=== PATIENT | female | born 1985 | race Caucasian/White ===

== ENCOUNTER 2019-11-05 17:09 | Emergency (ER) | payer BC ==
[~2019-11-05] VITALS: Ht 160 cm; Wt 69.9 kg
[2019-11-05 17:19] VITALS: BP 124/77
== END 2019-11-05 19:04 | disposition left against medical advice (07) ==
LOC: ER 17:09
DX: O26.893 Other specified pregnancy related conditions, third trimester (principal); H92.02 Otalgia, left ear; Z3A.35 35 weeks gestation of pregnancy; Z53.21 Procedure and treatment not carried out due to patient leaving prior to being seen by health care provider

== ENCOUNTER 2023-06-16 00:29 | Inpatient (IN) | payer BC ==
[~2023-06-16] VITALS: Ht 153 cm; Wt 62.0 kg
[2023-06-16] MEDS ORDERED: ONDANSETRON HCL 4 MG/2 ML VIAL IV ONE ×2 (01:00→02:15)
[2023-06-16] MEDS ORDERED: MORPHINE SULFATE 4 MG/ML SYR/VIAL IV ONE (01:00)
[2023-06-16] MEDS ORDERED: KETOROLAC TROMETH 30 MG/ML 1ML VIAL IV ONE (01:00)
[2023-06-16] MEDS ORDERED: LACTATED RINGER'S 1,000 ML IV ONE ×2 (01:00→02:15)
[2023-06-16 01:18] VITALS: PULSE 98; RESP 15; O2SAT 95
[2023-06-16 01:25] LABS: Basophils # (auto) 0 10 ^3/uL (0-0.2); Basophils % (auto) 0.1 % (0.0-2.0); Eosinophils # (auto) 0.1 10 ^3/uL (0-0.8); Eosinophils % (auto) 0.8 % (0.0-7.0); Hematocrit 38.8 % (36.0-46.0); Hemoglobin 13.1 g/dL (12.2-16.2); Lymphocytes # (auto) 0.8 10 ^3/uL (0.4-5.4); Mean Corpuscular Hemoglobin 30.4 pg (28.0-32.0); Mean Corpuscular Hgb Conc. 33.8 g/dL (32.0-36.0); Mean Corpuscular Volume 90.1 fL (80.0-100.0); Monocytes # (auto) 0.5 10 ^3/uL (0-1.3); Monocytes % (auto) 5.2 % (0.0-12.0); Neutrophils # (auto) 8.8 10 ^3/uL (1.6-8.6); Neutrophils % (auto) 85.9 % (37.0-80.0); Red Blood Cells 4.31 10^6/uL (4.0-5.20); White Blood Cell 10.2 10^3/uL (4.4-10.8)
[2023-06-16 01:31] LABS: INR 1.04 (0.9-1.15); Partial Thromboplastin Time 31.2 SEC (24.5-34.5); Prothrombin Time 10.9 sec (9.3-11.8)
[2023-06-16 01:38] LABS: Albumin 3.6 g/dL (3.4-5.0); Calcium 8.3 mg/dL (8.7-10.4); Magnesium 2.5 mg/dL (1.6-2.6); Potassium 3.9 mmol/L (3.5-5.1)
[2023-06-16 01:41] LABS: Bilirubin, Total 0.7 mg/dL (0.2-1.0); Total Protein 7.1 g/dL (6.4-8.2)
[2023-06-16 01:43] LABS: Urine Bacteria NONE SEEN /hpf (None Seen); Urine Blood Negative /uL (Negative); Urine Clarity Clear (Clear); Urine Color Yellow (Yellow); Urine Protein, UAD TRACE (Negative); Urine Specific Gravity 1.012 (1.001-1.035); Urine Urobilinogen Normal (Negative); Urine WBC 48 /hpf (0 - 5)
[2023-06-16 01:47] LABS: Beta HCG, Quantitative < 1 mlU/mL (1-3)
[2023-06-16 02:10] LABS: CRP High Sensitivity 6.74 mg/dL (< 0.3)
[2023-06-16] MEDS ORDERED: HYDROmorphone HCL 2 MG/ML VL/or syr IV ONE (02:15)
[2023-06-16] MEDS ORDERED: cefTRIAXone 1GM/50ML D5W 50 ML IV ONE (02:15)
[2023-06-16 02:22] LABS: Erythrocyte Sedimentation Rate 25 mm/hr (0-20)
[2023-06-16] MEDS ORDERED: ACETAMINOPHEN 325 MG TAB PO PRN (06:45)
[2023-06-16] MEDS ORDERED: ONDANSETRON HCL 4 MG/2 ML VIAL IV PRN (06:45)
[2023-06-16] MEDS ORDERED: MORPHINE SULFATE INJ 2 MG/ml SYRG IV PRN (06:45)
[2023-06-16 08:00] VITALS: O2SAT 99
[2023-06-16] MEDS ORDERED: MANNITOL FTV 25% 12.5 GM/50 ML 50 ML IV ONE ×2 (08:15→16:00)
[2023-06-16] MEDS: LACTATED RINGER'S 1,000 ML IV SCH ×2 (08:25→13:31)
[2023-06-16] MEDS: cefTRIAXone 1GM/50ML D5W 50 ML IV SCH (08:31)
[2023-06-16 08:49] LABS: Basophils # (auto) 0 10 ^3/uL (0-0.2); Basophils % (auto) 0.5 % (0.0-2.0); Eosinophils # (auto) 0.1 10 ^3/uL (0-0.8); Eosinophils % (auto) 1.3 % (0.0-7.0); Lymphocytes # (auto) 1.7 10 ^3/uL (0.4-5.4); Lymphocytes % (auto) 16.9 % (10.0-50.0); Mean Corpuscular Hemoglobin 29.6 pg (28.0-32.0); Mean Corpuscular Hgb Conc. 32.5 g/dL (32.0-36.0); Mean Corpuscular Volume 91.1 fL (80.0-100.0); Monocytes # (auto) 0.8 10 ^3/uL (0-1.3); Monocytes % (auto) 7.4 % (0.0-12.0); Neutrophils # (auto) 7.5 10 ^3/uL (1.6-8.6); Neutrophils % (auto) 73.9 % (37.0-80.0); Red Blood Cells 4.06 10^6/uL (4.0-5.20); White Blood Cell 10.2 10^3/uL (4.4-10.8)
[2023-06-16 09:05] LABS: INR 1.03 (0.9-1.15); Partial Thromboplastin Time 32.9 SEC (24.5-34.5); Prothrombin Time 10.8 sec (9.3-11.8)
[2023-06-16 09:14] LABS: Potassium 3.4 mmol/L (3.5-5.1)
[2023-06-16 09:23] LABS: Urine Bacteria None Seen /hpf (None Seen)
[2023-06-16 09:35] LABS: Albumin 3.2 g/dL (3.4-5.0); BUN/Creatinine Ratio 8.2 (10.0-20.0); Bilirubin, Total 0.6 mg/dL (0.2-1.0); CRP High Sensitivity 6.85 mg/dL (< 0.3); Calcium 8.3 mg/dL (8.7-10.4); Total Protein 6.8 g/dL (6.4-8.2); Uric Acid 3.4 mg/dL (2.6-6.0)
[2023-06-16 11:32] LABS: Alcohol, Urine < 3.0 mg/dL (0-10); Amphetamine Screen, Urine NEGATIVE (NEGATIVE); Barbiturate Scree,Urine NEGATIVE (NEGATIVE); Benzodiazephine Screen, Urine NEGATIVE (NEGATIVE); Cannabinoid Screen, Urine NEGATIVE (NEGATIVE); Cocaine Screen, Urine NEGATIVE (NEGATIVE); Opiate Scree,Urine NEGATIVE (NEGATIVE); Phencyclidine Screen, Urine NEGATIVE (NEGATIVE)
[2023-06-16] MEDS: PANTOPRAZOLE 40 MG TAB PO SCH (11:42)
[2023-06-16 12:00] VITALS: BP 122/75; PULSE 68; RESP 20; TEMP 98.8; O2SAT 100
[2023-06-16 16:00] VITALS: BP 126/75; PULSE 88; RESP 20; TEMP 98.3; O2SAT 98
[2023-06-16 16:38] LABS: Erythrocyte Sedimentation Rate 23 mm/hr (0-20)
[2023-06-16] MEDS ORDERED: CYANOCOBALAMIN (B-12) 1000 MCG/1 ML VIAL SUBCUT ONE (16:45)
[2023-06-16] MEDS ORDERED: POTASSIUM CHL 10 Meq TABLET PO ONE (16:45)
[2023-06-16] MEDS ORDERED: CYANOCOBALAMIN (B-12) 1000 MCG/1 ML VIAL IM ONE (17:00)
[2023-06-16 17:27] LABS: Urine WBC 11 /hpf (0 - 5)
[2023-06-16] MEDS: MORPHINE SULFATE INJ 2 MG/ml SYRG IV PRN (20:19)
[2023-06-16 22:35] VITALS: BP 107/60; PULSE 84; RESP 16; TEMP 99.2; O2SAT 99
[2023-06-16] MEDS: HYDROcodone-ACET 5/325MG TAB PO PRN (23:59)
[2023-06-17] VITALS (7 sets, daily range): BP systolic 93–107; BP diastolic 58–72; PULSE 69–92; RESP 14–16; TEMP 97.6–98.6; O2SAT 92–98
[2023-06-17 06:07] LABS: RPR Non Reactive (Non Reactive)
[2023-06-17 06:13] LABS: Basophils # (auto) 0 10 ^3/uL (0-0.2); Basophils % (auto) 0.4 % (0.0-2.0); Eosinophils # (auto) 0.3 10 ^3/uL (0-0.8); Eosinophils % (auto) 3.5 % (0.0-7.0); Hematocrit 38.6 % (36.0-46.0); Hemoglobin 12.9 g/dL (12.2-16.2); Lymphocytes # (auto) 1.7 10 ^3/uL (0.4-5.4); Lymphocytes % (auto) 20.9 % (10.0-50.0); Mean Corpuscular Hemoglobin 30.1 pg (28.0-32.0); Mean Corpuscular Hgb Conc. 33.3 g/dL (32.0-36.0); Mean Corpuscular Volume 90.3 fL (80.0-100.0); Monocytes # (auto) 0.9 10 ^3/uL (0-1.3); Monocytes % (auto) 10.7 % (0.0-12.0); Neutrophils # (auto) 5.1 10 ^3/uL (1.6-8.6); Neutrophils % (auto) 64.5 % (37.0-80.0); Nucleated Red Blood Cells % 0.1 %; Red Blood Cells 4.27 10^6/uL (4.0-5.20); Red Cell Distribution Width 15.4 % (11.8-14.3)
[2023-06-17 06:39] LABS: Alanine Aminotransferase 11 U/L (7-40); Albumin 3.9 g/dL (3.2-4.8); Alkaline Phosphatase 45 U/L (46-116); Anion Gap 7.9 (5-15); Aspartate Aminotransferase 14 U/L (13-40); Calcium 8.7 mg/dL (8.7-10.4); Carbon Dioxide 25.1 mmol/L (20-30); Chloride 107 mmol/L (98-107); Glucose 90 mg/dL (74-106); Potassium 4.1 mmol/L (3.5-5.1); Sodium 140 mmol/L (136-145)
[2023-06-17 06:40] LABS: Bilirubin, Total 0.6 mg/dL (0.2-1.0); Total Protein 6.7 g/dL (5.7-8.2)
[2023-06-17 07:24] LABS: BUN/Creatinine Ratio 6.5 (10.0-20.0); Blood Urea Nitrogen < 5 mg/dL (9-23)
[2023-06-17] MEDS: MORPHINE SULFATE INJ 2 MG/ml SYRG IV PRN (08:12)
[2023-06-17] MEDS: cefTRIAXone 1GM/50ML D5W 50 ML IV SCH (08:15)
[2023-06-17] MEDS: PANTOPRAZOLE 40 MG TAB PO SCH (09:48)
[2023-06-17] MEDS: CYANOCOBALAMIN 500 MCG TAB PO SCH (09:48)
[2023-06-17] MEDS ORDERED: CYANOCOBALAMIN 500 MCG TAB PO SCH (10:00)
[2023-06-17] MEDS: LACTATED RINGER'S 1,000 ML IV SCH (10:40)
[2023-06-17] MEDS: MEROPENEM 1GM IVPB 100 ML IV SCH ×2 (12:13→18:20)
[2023-06-17] MEDS: HYDROcodone-ACET 5/325MG TAB PO PRN ×2 (12:13→19:48)
[2023-06-17] MEDS: DOCUSATE SOD 100 MG CAP PO SCH ×2 (16:52→21:11)
[2023-06-17] MEDS ORDERED: TEMAZEPAM 15 MG CAP PO ONE (22:00)
[2023-06-18] MEDS: MEROPENEM 1GM IVPB 100 ML IV SCH ×3 (03:00→18:37)
[2023-06-18 05:08] LABS: Chlamydia Trachomatis, NAA Negative (Negative); Neisseria gonorrhoeae, NAA Negative (Negative)
[2023-06-18 08:00] VITALS: BP 101/66; PULSE 77; RESP 18; TEMP 97.7; O2SAT 97
[2023-06-18] MEDS: PANTOPRAZOLE 40 MG TAB PO SCH (09:14)
[2023-06-18] MEDS: DOCUSATE SOD 100 MG CAP PO SCH ×2 (09:14→21:50)
[2023-06-18] MEDS: CYANOCOBALAMIN 500 MCG TAB PO SCH (09:15)
[2023-06-18 09:21] VITALS: BP 101/66; PULSE 77; RESP 18; TEMP 97.7; O2SAT 97
[2023-06-18] MEDS ORDERED: MANNITOL FTV 25% 12.5 GM/50 ML 50 ML IV ONE (11:00)
[2023-06-18] MEDS: HYDROcodone-ACET 5/325MG TAB PO PRN ×2 (11:33→18:38)
[2023-06-18 13:00] VITALS: BP 119/80; PULSE 91; RESP 19; TEMP 97.7; O2SAT 95
[2023-06-18] MEDS: LACTATED RINGER'S 1,000 ML IV SCH ×2 (15:25)
[2023-06-18 16:53] VITALS: BP 107/68; PULSE 65; RESP 17; TEMP 97.4; O2SAT 96
[2023-06-18 19:50] VITALS: PULSE 78; RESP 18; O2SAT 97
[2023-06-18 22:00] VITALS: BP 104/71; PULSE 78; RESP 18; TEMP 97.9; O2SAT 97
[2023-06-18] MEDS ORDERED: TEMAZEPAM 15 MG CAP PO ONE (22:00)
[2023-06-19] MEDS: LACTATED RINGER'S 1,000 ML IV SCH (02:40)
[2023-06-19] MEDS: MEROPENEM 1GM IVPB 100 ML IV SCH (03:24)
[2023-06-19 05:00] VITALS: BP 109/69; PULSE 66; RESP 18; TEMP 97.7; O2SAT 91
[2023-06-19 05:58] LABS: Anion Gap 5.1 (5-15); Carbon Dioxide 27.9 mmol/L (20-30); Chloride 106 mmol/L (98-107); Potassium 3.9 mmol/L (3.5-5.1); Sodium 139 mmol/L (136-145)
[2023-06-19 05:59] LABS: Calcium 8.9 mg/dL (8.7-10.4)
[2023-06-19 06:04] LABS: BUN/Creatinine Ratio 11.3 (10.0-20.0); Blood Urea Nitrogen 8 mg/dL (9-23); Glucose 93 mg/dL (74-106)
[2023-06-19 06:11] LABS: Basophils # (auto) 0 10 ^3/uL (0-0.2); Basophils % (auto) 0.7 % (0.0-2.0); Eosinophils # (auto) 0.3 10 ^3/uL (0-0.8); Eosinophils % (auto) 3.6 % (0.0-7.0); Hematocrit 35.3 % (36.0-46.0); Hemoglobin 11.8 g/dL (12.2-16.2); Lymphocytes # (auto) 1.7 10 ^3/uL (0.4-5.4); Lymphocytes % (auto) 24.7 % (10.0-50.0); Mean Corpuscular Hemoglobin 30.2 pg (28.0-32.0); Mean Corpuscular Hgb Conc. 33.5 g/dL (32.0-36.0); Mean Corpuscular Volume 90.1 fL (80.0-100.0); Monocytes # (auto) 0.7 10 ^3/uL (0-1.3); Monocytes % (auto) 10.6 % (0.0-12.0); Neutrophils # (auto) 4.2 10 ^3/uL (1.6-8.6); Neutrophils % (auto) 60.4 % (37.0-80.0); Red Blood Cells 3.92 10^6/uL (4.0-5.20); Red Cell Distribution Width 14.7 % (11.8-14.3)
[2023-06-19 08:05] VITALS: BP 101/66; PULSE 64; RESP 15; TEMP 98.1
[2023-06-19 08:24] VITALS: BP 101/66; PULSE 64; RESP 15; TEMP 98.1; O2SAT 100
[2023-06-19] MEDS ORDERED: CIPR500T4 PO (08:30)
[2023-06-19] MEDS ORDERED: TRAM50TA2 PO (08:30)
[2023-06-19 08:52] VITALS: BP 101/66; PULSE 64; RESP 15; TEMP 98.1; O2SAT 100
== END 2023-06-19 09:30 | disposition home or self-care (01) | DRG 690 ==
LOC: ER 00:29 → OVERFLOW 06:48 → CENTRAL 12:06
PROVIDERS: ADMIT Internal Medicine; ATTEND Nurse Practitioner Acute Care
DX: N10 Acute pyelonephritis (principal); R78.81 Bacteremia; N12 Tubulo-interstitial nephritis, not specified as acute or chronic; E87.8 Other disorders of electrolyte and fluid balance, not elsewhere classified; R79.82 Elevated C-reactive protein (CRP); N20.0 Calculus of kidney; R61 Generalized hyperhidrosis; E86.0 Dehydration; Z87.442 Personal history of urinary calculi; B96.20 Unspecified Escherichia coli [E. coli] as the cause of diseases classified elsewhere
CPT/HCPCS: 36415; 71045; 74176; 76775; 80048; 80053; 80061; 80307; 81001; 81015; 82043; 82306; 82360; 82607; 83605; 83690; 83735; 83880; 83930; 83935; 83970; 84100; 84443; 84484; 84550; 84702; 85025; 85610; 85652; 85730; 86141; 86592; 87040; 87077; 87086; 87186; 96361; 96365; 96375; G0378; J0696; J1885; J2185; J2405

== ENCOUNTER 2025-09-07 15:47 | Outpatient (CLI) | payer BC ==
[~2025-09-07 15:47] MED LIST: CIPR500T4 PO; TRAM50TA2 PO
[2025-09-07 16:17] LABS: Hematocrit 31.8 % (36.0-46.0); Hemoglobin 9.8 g/dL (12.2-16.2); Mean Corpuscular Hemoglobin 22.0 pg (28.0-32.0); Mean Corpuscular Volume 71.6 fL (80.0-100.0); Nucleated Red Blood Cells % 0.1 %
[2025-09-07 16:35] LABS: Alanine Aminotransferase 25 U/L (7-40); Albumin 4.5 g/dL (3.2-4.8); Alkaline Phosphatase 47 U/L (46-116); Anion Gap 8 (5-15); BUN/Creatinine Ratio 10.3 (10.0-20.0); Calcium 9.1 mg/dL (8.7-10.4); Carbon Dioxide 25 mmol/L (20-31); Chloride 107 mmol/L (98-107); Glucose 91 mg/dL (74-106); Magnesium 2.3 mg/dL (1.6-2.6); Potassium 4.5 mmol/L (3.5-5.1); Sodium 140 mmol/L (136-145); Total Protein 7.6 g/dL (5.7-8.2)
[2025-09-07 16:36] LABS: Bilirubin, Total 0.5 mg/dL (0.2-1.0)
[2025-09-07 16:37] LABS: Blood Urea Nitrogen 9 mg/dL (9-23)
[2025-09-07 20:00] LABS: Iron 15.0 ug/dL (50-170); Total Iron Binding Capacity 462.0 ug/dL (250-425)
== END 2025-09-07 17:00 | disposition home or self-care (01) ==
LOC: LAB 15:47
PROVIDERS: ATTEND Internal Medicine
DX: R00.2 Palpitations (principal)
CPT/HCPCS: 36415; 80053; 82378; 83540; 83550; 83735; 84439; 84443; 85025

== ENCOUNTER 2025-09-14 11:31 | Outpatient (CLI) | payer BC | END 2025-09-14 17:00 | disposition home or self-care (01) | LOC: LAB 11:31 | PROVIDERS: ATTEND Internal Medicine | DX: D50.9 Iron deficiency anemia, unspecified (principal); R14.0 Abdominal distension (gaseous) | CPT/HCPCS: 82274 ==

== ENCOUNTER 2025-10-11 10:42 | Day surgery (SDC) | payer BC ==
[2025-10-09 10:11] LABS: Hematocrit 32.5 % (36.0-46.0); Hemoglobin 10.0 g/dL (12.2-16.2); Mean Corpuscular Hemoglobin 22.0 pg (28.0-32.0); Mean Corpuscular Volume 71.4 fL (80.0-100.0); Nucleated Red Blood Cells % 0.0 %
[2025-10-09 10:21] LABS: Urine Protein, UAD Negative (Negative)
[2025-10-09 10:23] LABS: INR 0.98 (0.9-1.15); Partial Thromboplastin Time 26.1 SEC (24.5-34.5); Prothrombin Time 10.4 sec (9.3-11.8)
[2025-10-09 10:50] LABS: Alanine Aminotransferase 21 U/L (7-40); Albumin 4.4 g/dL (3.2-4.8); Alkaline Phosphatase 54 U/L (46-116); Anion Gap 9 (5-15); BUN/Creatinine Ratio 13.4 (10.0-20.0); Bilirubin, Total 0.4 mg/dL (0.2-1.0); Blood Urea Nitrogen 11 mg/dL (9-23); Calcium 9.1 mg/dL (8.7-10.4); Carbon Dioxide 24 mmol/L (20-31); Glucose 92 mg/dL (74-106); Potassium 4.5 mmol/L (3.5-5.1); Sodium 143 mmol/L (136-145); Total Protein 7.4 g/dL (5.7-8.2)
[2025-10-09 10:56] LABS: Chloride 110 mmol/L (98-107)
[~2025-10-11] VITALS: Ht 160 cm; Wt 56.7 kg
[2025-10-11] VITALS (7 sets, daily range): BP systolic 105; BP diastolic 72; PULSE 68–82; RESP 15–20; TEMP 98.6; O2SAT 100
[2025-10-11] MEDS ORDERED: MIDAZOLAM HCL 2MG/2ML 2ml VIAL (1mg/ml) ONE (13:09)
[2025-10-11] MEDS ORDERED: fentaNYL CITRATE 100 MCG/2 ML VL ONE (13:09)
[2025-10-11] MEDS ORDERED: PROPOFOL 10 MG/ML 20 ML IV ONE (13:20)
--- NOTE | 2025-10-11 15:10 | DVHOP2 ---
Operative Report DATE OF OPERATION: 10/11/25 PROCEDURE: Upper Endoscopy with biopsy. PREOPERATIVE INDICATION: The patient is a 40 -year-old female undergoing endoscopy for anemia and abdominal pain POSTOPERATIVE DIAGNOSES: 1. Mild gastritis otherwise normal examination up to the 2nd and 3rd part of the duodenum PROCEDURE PERFORMED BY: Elliott Parikh GI NURSE: Argelia SCOPE: Olympus videoendoscope. ASA CLASS: 2 PREOPERATIVE MEDICATIONS: Mac sedation, Dr. Moon PROCEDURE IN DETAIL: After obtaining an informed consent, the patient was placed on left lateral decubitus position. The patient was then sedated with the above medications. A bite block was placed between her teeth. The endoscope was then passed through the oropharynx, into the esophagus, and through the stomach and pylorus up to the second and third part of the duodenum. The endoscope was then withdrawn. The 2nd and 3rd part of the duodenum and the duodenal bulb were normal. Duodenal biopsies were obtained. The pre-pyloric area antrum and body showed mild gastritis. Gastric biopsies were obtained. On retroflexion the fundus cardia and angularis were normal. The endoscope was then withdrawn into distal esophagus Patient had no significant hiatal hernia no esophagitis. The remaining distal and proximal esophagus and oropharynx were unremarkable The patient tolerated the procedure well without difficulty. COMPLICATIONS : None SPECIMENS: Duodenal biopsies Gastric biopsies DISPOSITION: Status D/C to home PLAN: 1. Await for biopsy result 2. Will place pt on Protonix 40 mg p.o. daily 3. Resume full liquid diet advance as tolerated 4. Outpatient follow up with me in 2-4 weeks to review results and discuss further ELLIOTT PARIKH MD Oct 11, 2025 15:10
--- NOTE | 2025-10-11 15:29 | DVHOP2 ---
Operative Report DATE OF OPERATION: 10/11/25 PROCEDURE: Colonoscopy with hot snare polypectomy. PREOPERATIVE INDICATION: The patient is a 40 -year-old female undergoing colonoscopy for anemia and abdominal pain for colon cancer screening POSTOPERATIVE DIAGNOSES: 1. Patient had a large 5-6 cm sigmoid polypoid growth on a short stalk that was removed completely in a piecemeal fashion with the last segment including the stalk at about 30 cm above the anal verge 2. Patient had another 2-3 cm bilobed polyp on a short stalk seen in the distal sigmoid close to the rectosigmoid junction which was removed completely via hot snare polypectomy from the base of the stalk and the specimens were retrieved 3. Mild sigmoid diverticular disease; polypectomy sites were marked with Emperatriz ink. 4. Trace to 1+ internal hemorrhoids otherwise completely normal colonoscopy examination up to the cecum and terminal ileum PROCEDURE PERFORMED BY: Elliott Parikh M.D. SCOPE: Olympus videocolonoscope. ASA CLASS: 2 PREOPERATIVE MEDICATIONS: Mac sedation, PROCEDURE IN DETAIL: After obtaining an informed consent, the patient was placed on left lateral decubitus position. She was then sedated with the above medications. A rectal examination was performed that was normal. The colonoscope was then passed through the anus into the rectosigmoid and through the descending, transverse, and ascending colon up to the cecum with visualization of the appendiceal orifice, base of the cecum and the ileocecal valve. The colonoscope was then withdrawn. The distal 5-10 cm of the terminal ileum were normal Patient had no colitis. Patient had mild sigmoid diverticular disease. Patient had two large sigmoid polypoid growth. There was one about 5-6 cm multi lobe polypoid growth at about 30 cm above the anal verge This was removed in a piecemeal fashion in multiple fragments with the last piece including the base of the stalk. The site was marked with Emperatriz ink There was another 3 cm bilobed polyp on a stalk seen at about 20-25 cm above the anal verge. This was removed by hot snare polypectomy and the specimens were retrieved On retroflexion patient had trace internal hemorrhoids. The patient tolerated the procedure well without difficulty. WITHDRAWAL TIME: 30 minutes QUALITY OF THE PREP: Grahn Bowel Prep score: 9. COMPLICATIONS : None SPECIMENS: Proximal Sigmoid polyp x1 in multiple pieces including the stalk Distal sigmoid polyp close to rectosigmoid junction on a short stalk DISPOSITION: Stable D/C to home PLAN: 1. Repeat colonoscopy base on biopsy result likely in 1-2 years 2. Patient will stay on a clear liquid diet today advance to full liquid and then diet over the next 48-72 hours 3. Completely avoid aspirin NSAIDs smoking alcohol 4. Patient would be at risk for post polypectomy bleeding and she has been notified to watch for any signs of bleeding 5. Outpatient follow up with me in 2-4 weeks to review results and discuss further management ELLIOTT PARIKH MD Oct 11, 2025 15:29
== END 2025-10-11 17:05 | disposition home or self-care (01) ==
LOC: GI 10:42
PROVIDERS: ATTEND Internal Medicine Gastroenterology
DX: D64.9 Anemia, unspecified (principal); D12.5 Benign neoplasm of sigmoid colon; K63.5 Polyp of colon; K57.30 Diverticulosis of large intestine without perforation or abscess without bleeding; K29.50 Unspecified chronic gastritis without bleeding; K31.89 Other diseases of stomach and duodenum; R10.9 Unspecified abdominal pain; R93.89 Abnormal findings on diagnostic imaging of other specified body structures; Z98.890 Other specified postprocedural states
CPT/HCPCS: 36415; 43239; 45381; 45385; 80053; 81001; 81025; 85025; 85610; 85730; 88305; 88342; J1100; J2250; J2704; J3010; J7030